=== PATIENT | female | born 1975 ===

== ENCOUNTER 2024-01-07 21:49 | Emergency (ER) | payer BC ==
[2024-01-07] MEDS ORDERED: Ketorolac Tromethamine 30 MG (1 mL) VIAL ONE (23:32)
== END 2024-01-07 23:55 | disposition home or self-care (01) ==
LOC: BURERS 21:49
DX: S52.122A Displaced fracture of head of left radius, initial encounter for closed fracture (principal); S83.91XA Sprain of unspecified site of right knee, initial encounter; M46.1 Sacroiliitis, not elsewhere classified; W19.XXXA Unspecified fall, initial encounter
CPT/HCPCS: 29105; 72170; 96372; J1885